=== PATIENT | male | born 1985 | race Caucasian/White ===

== ENCOUNTER 2017-03-06 10:47 | Emergency (ER) | payer OTHER ==
[~2017-03-06] VITALS: Ht 188 cm; Wt 80.0 kg
[2017-03-06 10:48] VITALS: BP 128/56
[2017-03-06] MEDS ORDERED: MULT1CHW39 PO (11:05)
[2017-03-06] MEDS ORDERED: FISH1000 PO (11:05)
[2017-03-06] MEDS ORDERED: KEFL500C17 PO (12:07)
[2017-03-06] MEDS ORDERED: CEPHALEXIN 500 MG CAP PO ONE (12:15)
== END 2017-03-06 12:13 | disposition home or self-care (01) ==
LOC: M ED 10:47
DX: L60.0 Ingrowing nail (principal); L03.031 Cellulitis of right toe

== ENCOUNTER → 2017-04-29 | Outpatient (CLI) | payer OTHER ==
[~2017-04-29] MED LIST: FISH1000 PO; KEFL500C17 PO; MULT1CHW39 PO
--- NOTE | 2017-04-29 11:38 | REP ---
Right knee five views : There is no fracture or dislocation. Mineralization and joint spaces are normal. There are no calcifications or foreign bodies. Impression: Negative right knee . Signed by Chase Vila MD 04/29/2017 11:30 A
== END ==
LOC: M WUC 10:45
PROVIDERS: ATTEND Physician Assistant
DX: M25.561 Pain in right knee (principal)